=== PATIENT | male | born 1945 | race Caucasian/White ===

== ENCOUNTER 2019-12-27 06:32 | Day surgery (SDC) ==
--- NOTE | 2019-12-20 10:12 | EKG Report ---
Test Performed on : 12/20/2019 10:07:19 AM Test Reason : PAT Blood Pressure : / mmHG Vent. Rate : 063 BPM Atrial Rate : 063 BPM P-R Int : 182 ms QRS Dur : 142 ms QT Int : 440 ms P-R-T Axes : 014 -84 -09 degrees QTc Int : 450 ms Normal sinus rhythm. Right bundle branch block Left anterior fascicular block Bifascicular block Inferior infarct , age undetermined Abnormal ECG When compared with ECG of 22-MAY-2019 05:37, VA interval has decreased Left anterior fascicular block is now present Inferior infarct is now present Confirmed by Rolando WADE, Merrick Alxeander ([id number]) on 12/20/2019 2:36:18 PM
[2019-12-20 10:31] LABS: HEMOGLOBIN 14.4 g/dL (14.0-18.0); RBC 4.52 XMIL (4.7-6.1); WBC 5.41 X1000 (4.8-10.8)
[2019-12-20 10:32] LABS: HEMATOCRIT 43.9 % (42.0-52.0); INR 1.03; MCH 31.9 PG (27-31); MCHC 32.8 g/dL (33-37); MCV 97.1 FL (81-99); MPV 11.1 FL (7.4-10.4); PROTIME 13.6 Seconds (11.0-16.0); RDW 13.9 % (11.5-14.5)
[2019-12-20 10:33] LABS: PTT 27.6 Seconds (22.3-41.8)
[2019-12-20 10:55] LABS: AGAP 6; BUN 16 mg/dL (8-22); CALCIUM 9.5 mg/dL (8.8-10.2); CHLORIDE 96 mmol/L (98-107); COSMO 274; ESTIMATED GFR > 60; GLUCOSE 121 mg/dL (70-104); POTASSIUM 4.4 mmol/L (3.5-5.1); SODIUM 136 mmol/L (136-145); TCO2 34 mmol/L (25-35)
[2019-12-27] MEDS ORDERED: LR 1,000 ML ONE (06:50)
[2019-12-27] MEDS ORDERED: KEFZOL 1 GM/D5W 2 GM/100 ML IVPB ONE (06:50)
[2019-12-27] MEDS ORDERED: DIPRIVAN 1% ONE (07:21)
[2019-12-27] MEDS ORDERED: XYLOCAINE-MPF 2% ONE (07:22)
[2019-12-27] MEDS ORDERED: PITRESSIN ONE (08:08)
[2019-12-27] MEDS ORDERED: ZOFRAN ONE (08:34)
[2019-12-27] MEDS ORDERED: DECADRON ONE (08:34)
[2019-12-27] MEDS: OFIRMEV 1000 MG/ISOTONIC SOLN 1,000 MG/100 ML BOTTLE ONE ×2 (09:25→22:21)
[2019-12-27] MEDS ORDERED: NS 1,000 ML ONE (09:34)
[2019-12-27] MEDS ORDERED: MORPHINE IV PRN (09:37)
[2019-12-27] MEDS ORDERED: SODIUM CHLORIDE 0.9% INJ PRN (09:45)
[2019-12-27] MEDS ORDERED: LABETALOL IV PRN (09:45)
[2019-12-27] MEDS ORDERED: PHENERGAN IV PRN (09:45)
[2019-12-27] MEDS ORDERED: NORCO-7.5 PO PRN (09:45)
[2019-12-27] MEDS ORDERED: ZOFRAN IV PRN (09:45)
[2019-12-27] MEDS ORDERED: PHENERGAN PO PRN (09:45)
[2019-12-27] MEDS ORDERED: PHENERGAN PR PRN (09:45)
[2019-12-27] MEDS ORDERED: NS 1,000 ML IV SCH (09:45)
[2019-12-27] MEDS ORDERED: NORCO-5 PO PRN (09:45)
[2019-12-27] MEDS ORDERED: DITROPAN PO PRN (09:45)
[2019-12-27] MEDS ORDERED: NORCO-10 PO PRN (09:45)
--- NOTE | 2019-12-27 10:01 | OPERATIVE NOTE ---
PROCEDURE DATE: 12/27/2019 SURGEON: Dr. Jorge Mon. PREOPERATIVE DIAGNOSES: 1. Benign prostatic hyperplasia. 2. Weak stream. 3. Elevated prostate-specific antigen. POSTOPERATIVE DIAGNOSES: 1. Benign prostatic hyperplasia. 2. Weak stream. 3. Elevated prostate-specific antigen. 4. Meatal urethral stricture. PROCEDURE: Urethral dilation, bipolar transurethral resection of the prostate. INDICATIONS: A 74-year-old male with long-standing history of BPH on Flomax and persistent weak stream. His PSA damion. He has undergone prostate biopsies in the past. He has also had a pelvic MRI which revealed a concerning area in his transitional zone. He was counseled on TURP. FINDINGS: He had a meatal stricture approximately 16-[place]. The urethra was dilated successfully up to 26-[place]. There was bilobar prostatic hypertrophy. Adequate hemostasis at the conclusion of the case. DESCRIPTION OF PROCEDURE: After obtaining informed consent, patient brought to the operative room. Perioperative antibiotics and laryngeal mask anesthesia were administered. He has an inflatable penile prosthesis and it was deflated by me. He was prepped and draped in sterile fashion. I attempted to introduce a 21-[place] rigid cystoscope, but his meatus was fairly small and would not accommodate the cystoscope. Hence, we used female dilators and I sequentially dilated him from 16-[place] up to 26-[place]. There was excellent hemostasis. We then introduced a 26-[place] rigid resectoscope into his urethra. His prostatic urethra showed significant bilobar hypertrophy. His bladder had no evidence of mucosal lesions. He had moderate to severe trabeculations and several diverticula. There were no stones within the bladder lumen noted. I was able to visualize bilateral ureteral efflux. We used bipolar gyrus loop to resect the prostatic adenoma after demarcating ureteral orifices. I resected down to the level of the capsule circumferentially from the bladder neck to the level of verumontanum, making sure we did not go distal to verumontanum. Hemostasis was obtained along the way. The Ellik was used to evacuate prostate chips. Repeat examination showed no evidence of sizable chips and excellent hemostasis. The resectoscope was removed and 22-[place], three-way coude Robertson catheter was introduced with return of light pink urine. Then, 30 mL of sterile water were placed into the bulb and the penis was placed on light traction. He was extubated, taken to PACU for further recovery. ESTIMATED BLOOD LOSS: 30 mL. COMPLICATIONS: None. SPECIMENS: Prostate chips. DRAINS: A 22-[place], three-way coude Robertson catheter. DISPOSITION: To PACU and subsequently floor for observation with continuous bladder irrigation. cc: Jorge Mon MD
[2019-12-27] MEDS: NEURONTIN PO SCH ×2 (14:27→22:22)
[2019-12-27] MEDS ORDERED: OFIRMEV 1000 MG/ISOTONIC SOLN 1,000 MG/100 ML BOTTLE IV PRN (16:00)
[2019-12-27] MEDS: KEFZOL 2 GM/D5W 2 GM/50 ML IVPB IV SCH (16:34)
[2019-12-27] MEDS: BIDIL PO SCH (20:27)
[2019-12-27] MEDS: LOPRESSOR PO SCH (20:27)
[2019-12-27] MEDS: RANEXA PO SCH (20:27)
[2019-12-27] MEDS: ATIVAN PO SCH (20:27)
[2019-12-27] MEDS: COLACE PO SCH (20:28)
[2019-12-27] MEDS: PERIDEX MT SCH (20:28)
[2019-12-27] MEDS ORDERED: AMBIEN PO SCH (21:00)
[2019-12-27] MEDS ORDERED: ZOLOFT PO SCH (21:00)
[2019-12-27] MEDS: NS 1,000 ML IV SCH (22:21)
[2019-12-28] MEDS: NS 1,000 ML IV SCH ×2 (00:18→12:10)
[2019-12-28] MEDS: KEFZOL 2 GM/D5W 2 GM/50 ML IVPB IV SCH ×2 (00:18→10:29)
[2019-12-28] MEDS: PRILOSEC PO SCH ×2 (05:54→07:40)
[2019-12-28 07:19] LABS: HEMATOCRIT 39.2 % (42.0-52.0); HEMOGLOBIN 12.6 g/dL (14.0-18.0); MCH 31.2 PG (27-31); MCHC 32.1 g/dL (33-37); MPV 11.3 FL (7.4-10.4); RBC 4.04 XMIL (4.7-6.1); RDW 13.6 % (11.5-14.5); WBC 10.5 X1000 (4.8-10.8)
[2019-12-28 07:45] LABS: AGAP 11; BUN 14 mg/dL (8-22); CALCIUM 9.2 mg/dL (8.8-10.2); CHLORIDE 103 mmol/L (98-107); COSMO 283; CREATININE 0.9 mg/dL (0.7-1.2); ESTIMATED GFR > 60; GLUCOSE 115 mg/dL (70-104); POTASSIUM 4.7 mmol/L (3.5-5.1); SODIUM 141 mmol/L (136-145); TCO2 27 mmol/L (25-35)
[2019-12-28] MEDS ORDERED: CENTRUM SILVER PO SCH (09:00)
[2019-12-28] MEDS ORDERED: PATIENT'S OWN MED PO SCH (09:00)
[2019-12-28] MEDS ORDERED: COENZYME Q10 PO SCH (09:00)
[2019-12-28] MEDS ORDERED: PRINZIDE 20/12.5MG PO SCH (09:00)
[2019-12-28] MEDS ORDERED: ZETIA PO SCH (09:00)
[2019-12-28] MEDS: PERIDEX MT SCH (10:28)
[2019-12-28] MEDS: COLACE PO SCH (10:29)
[2019-12-28] MEDS: RANEXA PO SCH (10:29)
[2019-12-28] MEDS: BIDIL PO SCH (10:30)
[2019-12-28] MEDS: LOPRESSOR PO SCH (10:30)
[2019-12-28] MEDS: ATIVAN PO SCH (11:13)
[2019-12-28] MEDS: NEURONTIN PO SCH (11:14)
[2019-12-28 11:56] VITALS: BP 133/71
[2019-12-28] MEDS ORDERED: LIPITOR PO SCH (21:00)
== END 2019-12-28 13:42 | disposition home or self-care (01) ==
LOC: OR 06:32 → 4N 06:32 → OR 12-28 13:42
PROVIDERS: ATTEND Urology
PROC: UR.TURP (2019-12-27 07:55)